=== PATIENT | male | born 1970 | race Caucasian/White ===

== ENCOUNTER → 2017-12-01 | Emergency (ER) | payer OTHER ==
[~2017-12-01] VITALS: Ht 177.8 cm; Wt 58.1 kg
[~2017-12-01] MED LIST: CIPRO500 MG; NEXIUM 24HR20 M1; NORVIR100 M1; REYATAZ300 MG; TRUVADA 100 MG1 EACH
== END | disposition left against medical advice (07) ==
LOC: ER 17:16
DX: Z53.20 Procedure and treatment not carried out because of patient's decision for unspecified reasons (principal)

== ENCOUNTER 2020-09-01 20:33 | Emergency (ER) | payer OTHER ==
[~2020-09-01] VITALS: Ht 177.8 cm; Wt 63.5 kg
[2020-09-01] MEDS ORDERED: LORAZEPAM1 MG PO (20:44)
[2020-09-01] MEDS ORDERED: SERTRALINE HCL50 MG PO (20:45)
[2020-09-02] MEDS ORDERED: CLONAZEPAM1 MG PO (08:26)
[2020-09-02] MEDS ORDERED: KETO10TA2 PO (10:57)
== END 2020-09-01 22:45 | disposition home or self-care (01) ==
LOC: ER 20:33
DX: M25.571 Pain in right ankle and joints of right foot (principal); Z59.0 Homelessness

== ENCOUNTER 2020-09-02 08:09 | Emergency (ER) | payer OTHER ==
[~2020-09-02] VITALS: Ht 177.8 cm; Wt 65.8 kg
[~2020-09-02 08:09] MED LIST changes: +LORAZEPAM1 MG PO; +SERTRALINE HCL50 MG PO
[2020-09-02] MEDS ORDERED: CLONAZEPAM1 MG PO (08:26)
[2020-09-02] MEDS ORDERED: KETO10TA2 PO (10:57)
== END 2020-09-02 10:58 | disposition home or self-care (01) ==
LOC: ER 08:09
DX: M79.671 Pain in right foot (principal)

== ENCOUNTER 2024-04-18 02:54 | Emergency (ER) | payer OTHER ==
[~2024-04-18] VITALS: Ht 177.8 cm; Wt 63.5 kg
[~2024-04-18 02:54] MED LIST changes: +CLONAZEPAM1 MG PO; +DESCOVY 200-251 EACH PO; +KETO10TA2 PO; +NORVIR100 M2 PO; +REYATAZ300 MG PO
[2024-04-18] MEDS ORDERED: RINGERS SOLUTION,LACTATED 1,000 ML IV STA (04:13)
[2024-04-18 05:16] LABS: HEMATOCRIT 36.1 % (39.0-48.0); MEAN CELL VOLUME 86.1 fL (80.0-100.00); MEAN CORPUSCULAR HGB CONC 34.9 g/dl (32.0-36.0); PLATELET COUNT 272 K/uL (150-450); RED BLOOD COUNT 4.19 M/uL (4.00-6.00); RED CELL DISTRIBUTION WIDTH 14.4 % (11.5-14.5)
[2024-04-18 05:23] LABS: HEMOGLOBIN 12.6 g/dL (13-16.00)
[2024-04-18 05:31] LABS: CALCIUM 8.4 mg/dL (8.5-10.1); CREATININE SERUM 0.62 mg/dL (0.70-1.30); GFR 135.19; POTASSIUM 3.98 mEq/L (3.5-5.1)
== END 2024-04-18 08:27 | disposition home or self-care (01) ==
LOC: ER 02:55
DX: F32.9 Major depressive disorder, single episode, unspecified (principal)
CPT/HCPCS: 96365; 99282; J7120

== ENCOUNTER 2024-06-16 11:04 | Emergency (ER) | payer OTHER ==
[~2024-06-16] VITALS: Ht 177.8 cm; Wt 63.5 kg
[2024-06-16] MEDS ORDERED: CEFTRIAXONE SODIUM 1,000 MG VIAL IV ONE (12:00)
[2024-06-16] MEDS ORDERED: CEFTRIAXONE SODIUM 1,000 MG VIAL ONE (12:23)
== END 2024-06-16 12:51 | disposition home or self-care (01) ==
LOC: ER 11:06
DX: L02.419 Cutaneous abscess of limb, unspecified (principal)
CPT/HCPCS: 96365; 99282; J0696

== ENCOUNTER → 2024-06-16 | Emergency (ER) | payer OTHER | END | disposition left against medical advice (07) | LOC: ER 13:54 | DX: Z53.21 Procedure and treatment not carried out due to patient leaving prior to being seen by health care provider (principal) ==

== ENCOUNTER → 2024-06-25 | Emergency (ER) | payer OTHER ==
[~2024-06-25] VITALS: Ht 165.1 cm; Wt 63.5 kg
== END | disposition left against medical advice (07) ==
LOC: ER 22:09
DX: Z53.21 Procedure and treatment not carried out due to patient leaving prior to being seen by health care provider (principal)

== ENCOUNTER → 2024-07-14 | Emergency (ER) | payer OTHER ==
[~2024-07-14] VITALS: Ht 177.8 cm; Wt 63.5 kg
== END | disposition left against medical advice (07) ==
LOC: ER 22:43
DX: Z53.21 Procedure and treatment not carried out due to patient leaving prior to being seen by health care provider (principal)

== ENCOUNTER 2024-08-13 16:39 | Emergency (ER) | payer OTHER ==
[~2024-08-13] VITALS: Ht 182.9 cm; Wt 63.5 kg
[2024-08-13] MEDS ORDERED: 0.9 % SODIUM CHLORIDE 1,000 ML IV STA (17:20)
[2024-08-13 17:52] LABS: HEMATOCRIT 38.7 % (39.0-48.0); MEAN CELL VOLUME 85.2 fL (80.0-100.00); MEAN CORPUSCULAR HEMOGLOBIN 28.6 pg (27.00-32.0); MEAN CORPUSCULAR HGB CONC 33.6 g/dl (32.0-36.0); PLATELET COUNT 267 K/uL (150-450); RED BLOOD COUNT 4.55 M/uL (4.00-6.00); RED CELL DISTRIBUTION WIDTH 15.3 % (11.5-14.5)
[2024-08-13 18:04] LABS: CALCIUM 9.2 mg/dL (8.5-10.1); CREATININE SERUM 0.7 mg/dL (0.70-1.30); GFR 117.08; POTASSIUM 4.02 mEq/L (3.5-5.1)
[2024-08-13 18:08] LABS: PH,URINE 6.5 (5.0-8.0); URINE APPEARANCE Clear; URINE BILIRRUBIN Negative (NEGATIVE); URINE BLOOD Negative; URINE COLOR Yellow; URINE GLUCOSE Negative (NEGATIVE); URINE KETONE Negative (NEGATIVE); URINE LEUKOCYTE Negative; URINE NITRATE Negative; URINE PROTEIN Negative (NEGATIVE); URINE UROBILINOGEN 0.2 E.U./dl
[2024-08-13 18:21] LABS: URINE BACTERIA 0 uL (0.0-1933); URINE EPITHELIAL CELLS 0.1 uL (0.0-38.8); URINE RBC 0.1 uL (0.0-20.8); URINE WBC 0.1 uL (0.0-23.2)
== END 2024-08-13 21:35 | disposition home or self-care (01) ==
LOC: ER 16:39
PROVIDERS: Emergency Medicine
DX: R53.81 Other malaise (principal); R53.1 Weakness; Z20.822 Contact with and (suspected) exposure to COVID-19; Z88.1 Allergy status to other antibiotic agents
CPT/HCPCS: 36415; 96365; 96366; 99282; J7030

== ENCOUNTER → 2024-08-22 | Emergency (ER) | payer OTHER ==
[~2024-08-22] VITALS: Ht 152.4 cm; Wt 63.5 kg
[~2024-08-22] MED LIST changes: +0.9 % SODIUM CHLORIDE 500 ML IV ONE; +KETOROLAC TROMETHAMINE 30 MG VIAL IV ONE; +VALACYCLOVIR1000 MG PO
[2024-08-22 18:16] LABS: HEMATOCRIT 37.7 % (39.0-48.0); HEMOGLOBIN 12.8 g/dL (13-16.00); MEAN CELL VOLUME 84.1 fL (80.0-100.00); MEAN CORPUSCULAR HEMOGLOBIN 28.6 pg (27.00-32.0); PLATELET COUNT 239 K/uL (150-450); RED BLOOD COUNT 4.48 M/uL (4.00-6.00); RED CELL DISTRIBUTION WIDTH 15.1 % (11.5-14.5)
[2024-08-22 18:37] LABS: ALBUMIN 3.7 gm/dL (3.4-5.0); BILIRUBIN TOTAL 0.45 mg/dL (0.3-1.2); CALCIUM 9.3 mg/dL (8.5-10.1); CREATININE SERUM 0.58 mg/dL (0.70-1.30); GFR 145.46; GLOBULINA 4.1 G/DL (2.4-3.5); POTASSIUM 3.67 mEq/L (3.5-5.1); TOTAL PROTEIN 7.8 gm/dL (6.4-8.2)
== END | disposition left against medical advice (07) ==
LOC: ER 14:33
PROVIDERS: Nurse Practitioner Family
DX: B02.8 Zoster with other complications (principal); R53.81 Other malaise; Z88.8 Allergy status to other drugs, medicaments and biological substances; Z59.00 Homelessness unspecified; W06.XXXA Fall from bed, initial encounter; Y93.89 Activity, other specified; Y92.230 Patient room in hospital as the place of occurrence of the external cause
CPT/HCPCS: 36415; 96365; 96366; 99282; J1885; J7042

== ENCOUNTER 2024-08-27 21:10 | Emergency (ER) | payer OTHER ==
[~2024-08-27] VITALS: Ht 172.7 cm; Wt 81.6 kg
[~2024-08-27 21:10] MED LIST changes: -0.9 % SODIUM CHLORIDE 500 ML IV ONE; -KETOROLAC TROMETHAMINE 30 MG VIAL IV ONE
[2024-08-27] MEDS ORDERED: TRAMADOL HCL 50 MG TABLET PO ONE (21:45)
[2024-08-27] MEDS ORDERED: GABAPENTIN 100 MG CAPSULE PO ONE (21:45)
[2024-08-27] MEDS ORDERED: KETOROLAC TROMETHAMINE 30 MG VIAL IM ONE (21:45)
== END 2024-08-27 21:50 | disposition home or self-care (01) ==
LOC: ER 21:12
DX: B02.9 Zoster without complications (principal); Z88.1 Allergy status to other antibiotic agents

== ENCOUNTER 2024-10-09 08:31 | Emergency (ER) | payer OTHER ==
[~2024-10-09] VITALS: Ht 177.8 cm; Wt 65.3 kg
[2024-10-09] MEDS ORDERED: FAMOTIDINE/PF 20 MG in 0.9 % SODIUM CHLORIDE 8 ML IV PUSH STA (08:55)
[2024-10-09] MEDS ORDERED: ONDANSETRON HCL 2 MG/ML VIAL ONE (08:58)
[2024-10-09] MEDS ORDERED: FAMOTIDINE/PF 20 MG/2 ML VIAL ONE (08:59)
[2024-10-09] MEDS ORDERED: ONDANSETRON HCL 2 MG/ML VIAL IV ONE (09:00)
[2024-10-09] MEDS ORDERED: 0.9 % SODIUM CHLORIDE 1,000 ML IV SCH (09:00)
[2024-10-09] MEDS ORDERED: DIPHENOXYLATE HCL/ATROPINE 1 UDTAB TABLET PO ONE (09:00)
[2024-10-09 09:25] LABS: HEMATOCRIT 35.3 % (39.0-48.0); HEMOGLOBIN 12.3 g/dL (13-16.00); MEAN CELL VOLUME 84.2 fL (80.0-100.00); MEAN CORPUSCULAR HEMOGLOBIN 29.3 pg (27.00-32.0); MEAN CORPUSCULAR HGB CONC 34.8 g/dl (32.0-36.0); PLATELET COUNT 238 K/uL (150-450); RED BLOOD COUNT 4.19 M/uL (4.00-6.00)
[2024-10-09 09:50] LABS: ALBUMIN 3.5 gm/dL (3.4-5.0); BILIRUBIN TOTAL 0.33 mg/dL (0.3-1.2); CALCIUM 9.9 mg/dL (8.5-10.1); CREATININE SERUM 0.77 mg/dL (0.70-1.30); GFR 104.89; GLOBULINA 4.5 G/DL (2.4-3.5); POTASSIUM 4.01 mEq/L (3.5-5.1)
[2024-10-09 10:21] VITALS: BP 140/80; O2SAT 100
== END 2024-10-09 10:26 | disposition home or self-care (01) ==
LOC: ER 08:34
PROVIDERS: General Practice
DX: R11.2 Nausea with vomiting, unspecified (principal); R19.7 Diarrhea, unspecified; R11.10 Vomiting, unspecified; Z88.1 Allergy status to other antibiotic agents; Z88.2 Allergy status to sulfonamides

== ENCOUNTER → 2024-10-10 | Emergency (ER) | payer OTHER ==
[~2024-10-10] VITALS: Ht 177.8 cm; Wt 65.3 kg
[2024-10-10 04:21] VITALS: BP 132/79; O2SAT 96
== END | disposition left against medical advice (07) ==
LOC: ER 04:16
DX: Z53.21 Procedure and treatment not carried out due to patient leaving prior to being seen by health care provider (principal)

== ENCOUNTER → 2024-10-11 | Emergency (ER) | payer OTHER ==
[~2024-10-11] VITALS: Ht 175.3 cm; Wt 65.3 kg
== END | disposition left against medical advice (07) ==
LOC: ER 05:56
DX: Z53.21 Procedure and treatment not carried out due to patient leaving prior to being seen by health care provider (principal)

== ENCOUNTER → 2024-10-21 | Emergency (ER) | payer OTHER ==
[~2024-10-21] VITALS: Ht 167.6 cm; Wt 68.0 kg
== END | disposition left against medical advice (07) ==
LOC: ER 07:00
DX: Z53.21 Procedure and treatment not carried out due to patient leaving prior to being seen by health care provider (principal)

== ENCOUNTER 2025-02-10 12:40 | Emergency (ER) | payer OTHER ==
[~2025-02-10] VITALS: Ht 177.8 cm; Wt 59.9 kg
[~2025-02-10 12:40] MED LIST changes: +CLONAZEPAM2 MG PO; +IBU800 MG; +TRAZODONE HCL150 MG
[2025-02-10] MEDS ORDERED: GABAPENTIN600 MG PO (12:53)
[2025-02-10] MEDS ORDERED: FAMOtidine 10 MG/ML (4ML VIAL) IV PUSH STA (20:20)
[2025-02-10] MEDS ORDERED: 0.9 % SODIUM CHLORIDE 1,000 ML IV STA (20:20)
[2025-02-10 21:18] LABS: BASO % 0.7 % (0.1-1.2); EOS # 0.13 (0.04-0.54); EOS % 3.1 % (0.7-7.0); HEMATOCRIT 36.8 % (40.1-51.0); HEMOGLOBIN 12.1 g/dL (13.7-17.5); LYMPH % 40.1 % (19.3-53.1); MEAN CORPUSCULAR HEMOGLOBIN 26.7 pg (25.6-32.2); NEUT # 1.77 (1.56-6.13); NEUT % 41.7 % (34.0-71.1); PLATELET COUNT 354 K/uL (163-369); RED BLOOD COUNT 4.54 M/uL (4.63-6.08); RED CELL DISTRIBUTION WIDTH 15.7 % (11.6-14.4)
[2025-02-10 21:25] LABS: MONO % 14.2 % (4.7-12.5)
[2025-02-10 22:08] LABS: ALBUMIN 3.6 gm/dL (3.4-5.0); BILIRUBIN TOTAL 0.38 mg/dL (0.3-1.2); CALCIUM 9.2 mg/dL (8.5-10.1); CREATININE SERUM 0.52 mg/dL (0.70-1.30); GFR 164.99; GLOBULINA 4.5 G/DL (2.4-3.5); POTASSIUM 3.71 mEq/L (3.5-5.1); TOTAL PROTEIN 8.1 gm/dL (6.4-8.2)
== END 2025-02-11 06:34 | disposition home or self-care (01) ==
LOC: ER 12:40
DX: K29.70 Gastritis, unspecified, without bleeding (principal); Z88.1 Allergy status to other antibiotic agents; Z88.2 Allergy status to sulfonamides
CPT/HCPCS: 36415; 96365; 96366; 99282; J3490; J7030